=== PATIENT | female | born 1955 | race Caucasian/White ===

== ENCOUNTER 2017-06-28 23:29 | Emergency (ER) | payer OTHER ==
[2017-06-29 02:37] VITALS: BP 128/68
== END 2017-06-29 02:37 | disposition home or self-care (01) ==
LOC: ED 23:29
DX: N12 Tubulo-interstitial nephritis, not specified as acute or chronic (principal); N39.0 Urinary tract infection, site not specified; J45.909 Unspecified asthma, uncomplicated; I10 Essential (primary) hypertension; E03.9 Hypothyroidism, unspecified
CPT/HCPCS: J0696; J1885